=== PATIENT | female | born 2005 | race Caucasian/White ===

== ENCOUNTER 2023-09-04 15:15 | Emergency (ER) | payer OTHER ==
[~2023-09-04] VITALS: Ht 167.6 cm; Wt 79.7 kg
[2023-09-04 16:53] VITALS: BP 118/58; TEMP 97.4; O2SAT 98
[2023-09-04] MEDS ORDERED: BACT800T5 PO (17:43)
[2023-09-04] MEDS: BACTRIM 160MG/800MG DS TAB PO ONE (17:48)
== END 2023-09-04 18:04 | disposition home or self-care (01) ==
LOC: M ED 15:15
DX: N39.0 Urinary tract infection, site not specified (principal); Z88.0 Allergy status to penicillin

== ENCOUNTER 2024-08-26 08:29 | Emergency (ER) | payer OTHER ==
[~2024-08-26] VITALS: Ht 170.2 cm; Wt 82.4 kg
[~2024-08-26 08:29] MED LIST: BACT800T5 PO
[2024-08-26] MEDS ORDERED: CYCL5TAB4 (08:43)
[2024-08-26 12:04] VITALS: BP 132/72; TEMP 98.1; O2SAT 99
== END 2024-08-26 12:08 | disposition home or self-care (01) ==
LOC: M ED 08:29
DX: B34.2 Coronavirus infection, unspecified (principal); B34.8 Other viral infections of unspecified site

== ENCOUNTER 2024-11-06 08:39 | Emergency (ER) | payer OTHER ==
[~2024-11-06] VITALS: Ht 170.2 cm; Wt 80.9 kg
[~2024-11-06 08:39] MED LIST changes: +CYCL5TAB4
[2024-11-06 08:48] VITALS: TEMP 98.2
[2024-11-06 10:09] LABS: BASO % 0.5 % (0.0-1.0); EOS # 0.1 10^3/uL (0.0-0.5); EOS % 0.6 % (0.0-3.0); HEMATOCRIT 39.8 % (36.0-47.0); HEMOGLOBIN 12.9 g/dl (12.0-15.5); LYMPH # 1.5 10^3/uL (1.5-5.0); LYMPH % 17.6 % (24.0-44.0); MEAN CORPUSCULAR HEMOGLOBIN 28.2 pg (27.0-33.0); MEAN CORPUSCULAR HGB CONC 32.4 g/dl (32.0-36.5); MEAN CORPUSCULAR VOLUME 87.1 fl (80.0-96.0); MONO # 0.5 10^3/uL (0.0-0.8); MONO % 5.4 % (2.0-8.0); NEUTROPHILS # 6.3 10^3/uL (1.5-8.5); NEUTROPHILS % 75.5 % (36.0-66.0); PLATELET COUNT, AUTOMATED 285 10^3/uL (150-450); RED BLOOD COUNT 4.57 10^6/uL (4.00-5.40); WHITE BLOOD COUNT 8.3 10^3/uL (4.0-10.0)
[2024-11-06 10:33] LABS: ALKALINE PHOSPHATASE 61 U/L (35-104); ALT/SGPT 17 U/L (7.0-40); AST/SGOT 12 U/L (<34); BILIRUBIN,DIRECT 0.2 MG/DL (<0.4); BILIRUBIN,TOTAL 0.5 MG/DL (0.3-1.2); BLOOD UREA NITROGEN 12 MG/DL (9-23); CALCIUM LEVEL 9.5 MG/DL (8.5-10.1); CARBON DIOXIDE LEVEL 25 MMOL/L (20-31); CHLORIDE LEVEL 110 MMOL/L (98-107); CREATININE FOR GFR 0.86 MG/DL (0.55-1.30); GLOMERULAR FILTRATION RATE > 90.0 (>60); GLUCOSE, FASTING 98 MG/DL (60-100); POTASSIUM SERUM 3.8 MMOL/L (3.5-5.1); SODIUM LEVEL 145 MMOL/L (136-145)
[2024-11-06 10:35] LABS: THYROID STIMULATING HORMONE 1.665 uIU/ML (0.55-4.78)
[2024-11-06 10:40] LABS: HCG, SERUM QUALITATIVE NEGATIVE (NEGATIVE)
[2024-11-06 12:45] VITALS: BP 119/70; O2SAT 100
[2024-11-06] MEDS: KETOROLAC 30 MG/ML 1ML VIAL IM ONE (12:51)
== END 2024-11-06 13:05 | disposition home or self-care (01) ==
LOC: M ED 08:39 → EDBD 08:39 → M ED 13:05
DX: R06.02 Shortness of breath (principal); Z88.0 Allergy status to penicillin
CPT/HCPCS: 70450; 71045; 80048; 80076; 84436; 84443; 84703; 85025; 93005; 96372; 99284; J1885

== ENCOUNTER 2024-11-08 21:37 | Emergency (ER) | payer OTHER ==
[~2024-11-08] VITALS: Ht 170.2 cm; Wt 85.0 kg
[2024-11-09] MEDS: KETOROLAC 30 MG/ML 1ML VIAL IV ONE (00:53)
[2024-11-09] MEDS: NS (Normal Saline) 0.9% 1,000 ML IV ONE (00:53)
[2024-11-09] MEDS: diphenhydrAMINE 50MG/ML VIAL IV STA (00:53)
[2024-11-09] MEDS: METOCLOPRAMIDE INJ 10MG/2ML VIAL IV ONE (00:53)
[2024-11-09 02:17] VITALS: BP 126/72; TEMP 97.3; O2SAT 98
== END 2024-11-09 02:25 | disposition home or self-care (01) ==
LOC: M ED 21:37
DX: R51.9 Headache, unspecified (principal); Z88.0 Allergy status to penicillin
CPT/HCPCS: 96361; 96374; 99284; J1200; J1885; J2765

== ENCOUNTER 2025-04-09 11:05 | Emergency (ER) | payer OTHER ==
[~2025-04-09] VITALS: Ht 170.2 cm; Wt 79.5 kg
[~2025-04-09 11:05] MED LIST changes: +MULTTAB20 PO
[2025-04-09] MEDS ORDERED: TOPI-257 PO (11:40)
[2025-04-09] MEDS ORDERED: ESCITALOPRAM (11:40)
[2025-04-09 11:57] LABS: HCG, SERUM QUALITATIVE NEGATIVE (NEGATIVE)
[2025-04-09 12:00] LABS: CALCIUM LEVEL 9.3 MG/DL (8.5-10.1); CARBON DIOXIDE LEVEL 21 MMOL/L (20-31); CHLORIDE LEVEL 109 MMOL/L (98-107); CREATININE FOR GFR 0.96 MG/DL (0.55-1.30); GLOMERULAR FILTRATION RATE 86.3 (>60); POTASSIUM SERUM 5.3 MMOL/L (3.5-5.1); SODIUM LEVEL 139 MMOL/L (136-145)
[2025-04-09 12:35] LABS: AMPHETAMINES LEVEL URINE NEGATIVE (NEGATIVE); BARBITURATES URINE NEGATIVE (NEGATIVE); BENZODIAZEPINES URINE NEGATIVE (NEGATIVE); CANNABINOIDS URINE NEGATIVE (NEGATIVE); COCAINE METABOLITE URINE NEGATIVE (NEGATIVE); METHADONE URINE NEGATIVE (NEGATIVE); OPIATES URINE NEGATIVE (NEGATIVE); PHENCYCLIDINE URINE NEGATIVE (NEGATIVE)
[2025-04-09] MEDS ORDERED: ISOVUE-370 76% 100 ML VIAL As Ordered ONE (13:37)
[2025-04-09] MEDS ORDERED: UBRO50TA PO (16:08)
[2025-04-09] MEDS ORDERED: ONDA-282 PO (16:08)
[2025-04-09] MEDS ORDERED: LEXA1TAB PO (16:08)
[2025-04-09] MEDS ORDERED: ACET1TAB55 PO (16:08)
[2025-04-09] MEDS ORDERED: HOME MED LIST COMPLETE! XX SCH (16:10)
[2025-04-09 18:15] VITALS: BP 133/76; TEMP 97.6; O2SAT 99
[2025-04-13 18:12] LABS: LEVETIRACETAM (KEPPRA) < 2.0 mcg/mL (6.0-46.0)
[2025-04-14 08:17] LABS: TOPIRAMATE LEVEL 3.7 mcg/mL (see note)
== END 2025-04-09 18:17 | disposition home or self-care (01) ==
LOC: EDBD 11:05 → M ED 11:05
DX: F44.5 Conversion disorder with seizures or convulsions (principal); Z79.899 Other long term (current) drug therapy; Z88.0 Allergy status to penicillin; Z88.8 Allergy status to other drugs, medicaments and biological substances
CPT/HCPCS: 36415; 71275; 80048; 80177; 80201; 80307; 84484; 84703; 93005; 99285; Q9967

== ENCOUNTER 2025-04-12 10:41 | Emergency (ER) | payer OTHER ==
[~2025-04-12] VITALS: Ht 170.2 cm; Wt 79.5 kg
[~2025-04-12 10:41] MED LIST changes: +ACET1TAB55 PO; +ESCITALOPRAM; +LEXA1TAB PO; +ONDA-282 PO; +TOPI-257 PO; +UBRO50TA PO
[2025-04-12 13:06] LABS: BASO # 0.1 10^3/uL (0.0-0.2); BASO % 0.6 % (0.0-1.0); EOS # 0.0 10^3/uL (0.0-0.5); EOS % 0.3 % (0.0-3.0); LYMPH # 1.4 10^3/uL (1.5-5.0); LYMPH % 15.0 % (24.0-44.0); MONO # 0.4 10^3/uL (0.0-0.8); MONO % 4.5 % (2.0-8.0); NEUTROPHILS # 7.3 10^3/uL (1.5-8.5); NEUTROPHILS % 79.3 % (36.0-66.0); PLATELET COUNT, AUTOMATED 355 10^3/uL (150-450)
[2025-04-12 13:30] LABS: ALT/SGPT 17 U/L (7.0-40); AST/SGOT 15 U/L (<34); CALCIUM LEVEL 9.6 MG/DL (8.5-10.1); CARBON DIOXIDE LEVEL 24 MMOL/L (20-31); CHLORIDE LEVEL 106 MMOL/L (98-107); CREATININE FOR GFR 0.93 MG/DL (0.55-1.30); GLOMERULAR FILTRATION RATE 89.7 (>60); POTASSIUM SERUM 4.2 MMOL/L (3.5-5.1); SODIUM LEVEL 141 MMOL/L (136-145)
[2025-04-12 13:34] LABS: HCG, SERUM QUALITATIVE NEGATIVE (NEGATIVE)
[2025-04-12] MEDS ORDERED: HOME MED LIST COMPLETE! XX SCH (13:45)
[2025-04-12] MEDS ORDERED: TOPI-257 PO (15:56)
[2025-04-12] MEDS: TOPIRAMATE 100 MG TAB PO ONE (16:13)
[2025-04-12 16:15] VITALS: BP 117/69; TEMP 97.6; O2SAT 99
== END 2025-04-12 16:25 | disposition home or self-care (01) ==
LOC: M ED 10:41 → EDBD 10:41 → M ED 16:25
DX: R56.00 Simple febrile convulsions (principal); F44.5 Conversion disorder with seizures or convulsions; F43.10 Post-traumatic stress disorder, unspecified; I45.10 Unspecified right bundle-branch block; G43.909 Migraine, unspecified, not intractable, without status migrainosus; Z88.0 Allergy status to penicillin; Z88.8 Allergy status to other drugs, medicaments and biological substances; Z79.899 Other long term (current) drug therapy

== ENCOUNTER 2025-05-21 15:13 | Inpatient (IN) | payer OTHER ==
[~2025-05-21] VITALS: Ht 170.2 cm; Wt 76.2 kg
[2025-05-21 15:32] LABS: VENOUS BASE EXCESS -5.7 (-2.0-2.0); VENOUS HCO3 19.2 MMOL/L (23.0-27.0); VENOUS O2 SATURATION 56.6 % (60.0-80.0); VENOUS PARTIAL PRESSURE CO2 36.3 mmHg (38.0-50.0); VENOUS PARTIAL PRESSURE O2 28.6 mmHg (30.0-50.0); VENOUS PH 7.342 UNITS (7.330-7.430); VENOUS STANDARD HCO3 18.9 MMOL/L; VENOUS TOTAL CO2 20.3 MMOL/L (24.0-28.0)
[2025-05-21 15:37] LABS: BASO # 0.1 10^3/uL (0.0-0.2); BASO % 0.6 % (0.0-1.0); EOS # 0.1 10^3/uL (0.0-0.5); EOS % 0.9 % (0.0-3.0); LYMPH # 2.2 10^3/uL (1.5-5.0); LYMPH % 21.3 % (24.0-44.0); MONO # 0.5 10^3/uL (0.0-0.8); MONO % 4.9 % (2.0-8.0); NEUTROPHILS # 7.4 10^3/uL (1.5-8.5); NEUTROPHILS % 72.0 % (36.0-66.0); PLATELET COUNT, AUTOMATED 411 10^3/uL (150-450)
[2025-05-21] MEDS: CHARCOAL ACTIVATED LIQUID 25 GM/120 ML BTL PO ONE (15:53)
[2025-05-21 15:59] LABS: ETHYL ALCOHOL (ETHANOL) < 0.003 % (0.000-0.010)
[2025-05-21 16:01] LABS: ALT/SGPT 22 U/L (7.0-40); AST/SGOT 16 U/L (<34); CALCIUM LEVEL 9.3 MG/DL (8.5-10.1); CARBON DIOXIDE LEVEL 20 MMOL/L (20-31); CHLORIDE LEVEL 105 MMOL/L (98-107); CPK CREATINE PHOSPHOKINASE 51 U/L (34-145); CREATININE FOR GFR 0.95 MG/DL (0.55-1.30); GLOMERULAR FILTRATION RATE 87.4 (>60); POTASSIUM SERUM 3.6 MMOL/L (3.5-5.1); SALICYLATE LEVEL < 3.0 MG/DL (<30); SODIUM LEVEL 139 MMOL/L (136-145)
[2025-05-21 16:35] LABS: AMPHETAMINES LEVEL URINE NEGATIVE (NEGATIVE); BARBITURATES URINE NEGATIVE (NEGATIVE); BENZODIAZEPINES URINE NEGATIVE (NEGATIVE); CANNABINOIDS URINE NEGATIVE (NEGATIVE); COCAINE METABOLITE URINE NEGATIVE (NEGATIVE); METHADONE URINE NEGATIVE (NEGATIVE); OPIATES URINE NEGATIVE (NEGATIVE); PHENCYCLIDINE URINE NEGATIVE (NEGATIVE)
[2025-05-21 17:16] LABS: HCG, SERUM QUALITATIVE NEGATIVE (NEGATIVE)
[2025-05-21] MEDS ORDERED: traZODone 50 MG TAB PO PRN (23:05)
[2025-05-21] MEDS ORDERED: OLANZapine 5 MG TAB PO PRN (23:05)
[2025-05-21] MEDS ORDERED: LORazepam 1 MG TAB PO PRN (23:05)
[2025-05-21] MEDS ORDERED: MOM 30 ML SUSPENSION UDC PO PRN (23:05)
[2025-05-21] MEDS ORDERED: IBUPROFEN 400 MG TAB PO PRN (23:05)
[2025-05-21] MEDS ORDERED: MAALOX 30 ML SUSP *UDC PO PRN (23:05)
[2025-05-21] MEDS ORDERED: LEVE500T5 PO (23:54)
[2025-05-21] MEDS ORDERED: MAGN400T33 PO (23:54)
[2025-05-21] MEDS ORDERED: UBRO100T PO (23:54)
[2025-05-21] MEDS ORDERED: B-2100TA PO (23:58)
[2025-05-21] MEDS ORDERED: NORT25CA2 PO (23:58)
[2025-05-22] MEDS ORDERED: TOPI-257 PO
[2025-05-22] MEDS ORDERED: ACET1TAB55 PO (00:04)
[2025-05-22] MEDS ORDERED: HOME MED LIST COMPLETE! XX SCH (00:05)
[2025-05-22 00:18] VITALS: BP 108/72; TEMP 97.9; O2SAT 99
[2025-05-22 06:26] VITALS: BP 112/59; TEMP 98; O2SAT 99
[2025-05-22] MEDS: ACETAMINOPHEN 325 MG TAB PO PRN (08:19)
[2025-05-22 14:36] VITALS: BP 135/65; TEMP 98.3; O2SAT 100
[2025-05-22] MEDS ORDERED: UBROGEPANT 100 MG PO SCH (14:50)
[2025-05-22] MEDS: ESCITALOPRAM OXALATE 10 MG TABLET PO SCH (15:03)
[2025-05-22] MEDS: LACOSAMIDE 50 MG TAB PO ONE (19:58)
[2025-05-22] MEDS: NORTRIPTYLINE 25 MG CAP PO SCH (21:48)
[2025-05-22] MEDS: TOPIRAMATE 100 MG TAB PO SCH (21:48)
[2025-05-22 23:10] VITALS: BP 135/65; TEMP 98.3; O2SAT 100
[2025-05-23 06:23] VITALS: BP 115/67; TEMP 97.5; O2SAT 100
[2025-05-23] MEDS: LACOSAMIDE 50 MG TAB PO SCH (08:18)
[2025-05-23 15:41] VITALS: BP 138/72; TEMP 98.1; O2SAT 100
[2025-05-24 06:36] VITALS: BP 125/67; TEMP 97.9; O2SAT 99
[2025-05-24 13:15] VITALS: BP 141/81; O2SAT 99
[2025-05-24 16:10] VITALS: BP 150/70; TEMP 98.1; O2SAT 100
[2025-05-24 17:23] VITALS: BP 146/94; TEMP 98; O2SAT 100
[2025-05-24 19:58] VITALS: BP 145/77; TEMP 98.4; O2SAT 98
[2025-05-24] MEDS: LACOSAMIDE 50 MG TAB PO SCH (21:05)
[2025-05-25 06:28] VITALS: BP 124/67; TEMP 97.6; O2SAT 99
[2025-05-25 16:33] VITALS: BP 117/60; TEMP 97.6; O2SAT 98
[2025-05-26 06:29] VITALS: BP 127/78; TEMP 97.6; O2SAT 99
[2025-05-26] MEDS ORDERED: LEXA1TAB PO (07:45)
[2025-05-26] MEDS ORDERED: LACO150T9 PO (08:00)
== END 2025-05-26 10:33 | disposition home or self-care (01) | DRG 880 ==
LOC: M ED 15:13 → EDBD 15:13 → M ED INP 23:03 → M PSY 05-22 00:07
PROVIDERS: ADMIT Psychiatry & Neurology Neurology; ATTEND Psychiatry & Neurology Neurology
DX: F41.1 Generalized anxiety disorder (principal); F43.10 Post-traumatic stress disorder, unspecified; G40.909 Epilepsy, unspecified, not intractable, without status epilepticus; G43.909 Migraine, unspecified, not intractable, without status migrainosus; Z91.82 Personal history of military deployment; T42.6X2A Poisoning by other antiepileptic and sedative-hypnotic drugs, intentional self-harm, initial encounter; T14.91XA Suicide attempt, initial encounter; Z79.899 Other long term (current) drug therapy; Z88.0 Allergy status to penicillin; Z88.8 Allergy status to other drugs, medicaments and biological substances

== ENCOUNTER 2025-06-17 14:44 | Emergency (ER) | payer OTHER ==
[~2025-06-17] VITALS: Ht 170.2 cm; Wt 81.6 kg
[~2025-06-17 14:44] MED LIST changes: +B-2100TA PO; +LACO150T9 PO; +LEVE500T5 PO; +MAGN400T33 PO; +NORT25CA2 PO; +UBRO100T PO
[2025-06-17 15:44] LABS: BASO # 0.1 10^3/uL (0.0-0.2); BASO % 0.4 % (0.0-1.0); EOS # 0.0 10^3/uL (0.0-0.5); EOS % 0.1 % (0.0-3.0); LYMPH # 1.3 10^3/uL (1.5-5.0); LYMPH % 9.3 % (24.0-44.0); MONO # 0.5 10^3/uL (0.0-0.8); MONO % 3.8 % (2.0-8.0); NEUTROPHILS # 11.8 10^3/uL (1.5-8.5); NEUTROPHILS % 86.0 % (36.0-66.0); PLATELET COUNT, AUTOMATED 298 10^3/uL (150-450)
[2025-06-17 16:07] LABS: HCG, SERUM QUALITATIVE POSITIVE (NEGATIVE)
[2025-06-17 16:08] LABS: ETHYL ALCOHOL (ETHANOL) < 0.003 % (0.000-0.010)
[2025-06-17 16:10] LABS: ALT/SGPT 23 U/L (7.0-40); AST/SGOT 17 U/L (<34); CALCIUM LEVEL 9.5 MG/DL (8.5-10.1); CARBON DIOXIDE LEVEL 20 MMOL/L (20-31); CHLORIDE LEVEL 105 MMOL/L (98-107); CREATININE FOR GFR 0.99 MG/DL (0.55-1.30); GLOMERULAR FILTRATION RATE 83.2 (>60); MAGNESIUM LEVEL 1.8 MG/DL (1.8-2.4); POTASSIUM SERUM 4.2 MMOL/L (3.5-5.1); SALICYLATE LEVEL < 3.0 MG/DL (<30); SODIUM LEVEL 137 MMOL/L (136-145)
[2025-06-17] MEDS: ACETAMINOPHEN 325 MG TAB PO ONE (16:37)
[2025-06-17 16:48] LABS: HCG, SERUM QUANTITATIVE 53.5 MIU/ML (<4.2)
[2025-06-17 17:07] LABS: AMPHETAMINES LEVEL URINE NEGATIVE (NEGATIVE); BARBITURATES URINE NEGATIVE (NEGATIVE)
[2025-06-17 17:08] LABS: BENZODIAZEPINES URINE NEGATIVE (NEGATIVE); CANNABINOIDS URINE NEGATIVE (NEGATIVE); COCAINE METABOLITE URINE NEGATIVE (NEGATIVE); METHADONE URINE NEGATIVE (NEGATIVE); OPIATES URINE NEGATIVE (NEGATIVE); PHENCYCLIDINE URINE NEGATIVE (NEGATIVE)
[2025-06-17 18:36] VITALS: BP 142/84; TEMP 98.6; O2SAT 100
[2025-06-18] MEDS ORDERED: LAMO100T80 PO (12:17)
[2025-06-18] MEDS ORDERED: ESCI5SOL3 PO (14:33)
[2025-06-18] MEDS ORDERED: LACO50TA12 PO (14:35)
[2025-06-18] MEDS ORDERED: LEXA1TAB PO (14:38)
[2025-06-21 23:53] LABS: TOPIRAMATE LEVEL 2.8 mcg/mL (see note)
== END 2025-06-17 18:39 | disposition home or self-care (01) ==
LOC: M ED 14:44
DX: O26.891 Other specified pregnancy related conditions, first trimester (principal); F43.0 Acute stress reaction; R00.0 Tachycardia, unspecified; F41.9 Anxiety disorder, unspecified; F32.A Depression, unspecified; G43.909 Migraine, unspecified, not intractable, without status migrainosus; Z79.1 Long term (current) use of non-steroidal anti-inflammatories (NSAID); Z79.899 Other long term (current) drug therapy; Z88.0 Allergy status to penicillin; Z88.8 Allergy status to other drugs, medicaments and biological substances; Z3A.00 Weeks of gestation of pregnancy not specified

== ENCOUNTER 2025-06-18 11:59 | Emergency (ER) | payer OTHER ==
[~2025-06-18] VITALS: Ht 170.2 cm; Wt 83.2 kg
[2025-06-18 12:01] VITALS: BP 132/64; TEMP 98.3; O2SAT 100
[2025-06-18] MEDS ORDERED: LAMO100T80 PO (12:17)
[2025-06-18] MEDS ORDERED: ESCI5SOL3 PO (14:33)
[2025-06-18] MEDS ORDERED: LACO50TA12 PO (14:35)
[2025-06-18] MEDS ORDERED: LEXA1TAB PO (14:38)
[2025-06-18] MEDS ORDERED: HOME MED LIST COMPLETE! XX SCH (14:45)
== END 2025-06-18 16:03 | disposition home or self-care (01) ==
LOC: M ED 11:59
DX: F43.0 Acute stress reaction (principal); Z88.0 Allergy status to penicillin; Z88.8 Allergy status to other drugs, medicaments and biological substances; Z79.899 Other long term (current) drug therapy